=== PATIENT | male | born 2000 | race Caucasian/White ===

== ENCOUNTER 2018-04-03 09:59 | Emergency (ER) | payer OTHER ==
[~2018-04-03] VITALS: Ht 182.9 cm; Wt 106.6 kg
[2018-04-03 10:33] LABS: URINE BILIRUBIN NEGATIVE (Negative); URINE BLOOD NEGATIVE (Negative); URINE CLARITY CLEAR; URINE COLOR DARK YELLOW; URINE GLUCOSE-RANDOM NEGATIVE (Negative); URINE KETONES NEGATIVE (Negative); URINE LEUKOCYTES NEGATIVE (Negative); URINE NITRITE NEGATIVE (Negative); URINE PROTEIN NEGATIVE (Negative); URINE UROBILINOGEN 0.2 E.U./dl (0.2-1.0)
[2018-04-03 10:43] LABS: CALCIUM 8.9 mg/dL (8.5-10.1); CREATININE 0.9 mg/dL (0.6-1.3)
[2018-04-03 10:48] LABS: ALBUMIN 3.7 g/dL (3.4-5.0); TOTAL BILIRUBIN 0.4 mg/dL (<0.1-1.0); TOTAL PROTEIN 7.1 g/dL (6.4-8.2)
[2018-04-03 10:49] LABS: ABSOLUTE EOSINOPHILS 0.2 thou/uL (0.0-0.7); ABSOLUTE LYMPHOCYTES 1.9 thou/uL (0.8-5.3); ABSOLUTE MONOCYTES 0.5 thou/uL (0.0-1.2); ABSOLUTE NEUTROPHILS 3.8 thou/uL (1.6-8.1); BASOPHILS 0.2 %; EOSINOPHILS 2.7 %; HEMATOCRIT 40.2 % (42.0-52.0); HEMOGLOBIN 13.7 gm/dL (14.0-18.0); LYMPHOCYTES 29.9 %; MCH 30.1 pg (26.0-34.0); MCHC 34.1 g/dL (28.0-37.0); MCV 88.4 fL (80.0-100.0); MONOCYTES 7.8 %; MPV 7.5 fl. (7.2-11.1); NUCLEATED RBCS 0 /100WBC; PLATELET COUNT* 300 thou/uL (150-400); POLYS 59.4 %; RBC 4.55 mil/uL (4.50-6.00); RDW-CV 12.9 % (10.5-14.5); WBC 6.4 thou/uL (4.0-11.0)
[2018-04-03] MEDS ORDERED: ONDANSETRON HCL4 M2 PO (12:12)
[2018-04-03 12:20] VITALS: BP 135/63
== END 2018-04-03 12:20 | disposition home or self-care (01) ==
LOC: M.ERS 09:59
PROVIDERS: Nurse Practitioner Family
DX: K52.9 Noninfective gastroenteritis and colitis, unspecified (principal); R74.8 Abnormal levels of other serum enzymes; Z88.1 Allergy status to other antibiotic agents; Z88.8 Allergy status to other drugs, medicaments and biological substances

== ENCOUNTER 2018-08-25 13:49 | Emergency (ER) | payer OTHER ==
[~2018-08-25] VITALS: Ht 182.9 cm; Wt 111.1 kg
[~2018-08-25 13:49] MED LIST: ONDANSETRON HCL4 M2 PO
[2018-08-25 13:56] VITALS: BP 138/89
== END 2018-08-25 14:36 | disposition home or self-care (01) ==
LOC: M.ERS 13:49
DX: R19.7 Diarrhea, unspecified (principal); K58.9 Irritable bowel syndrome, unspecified; F17.210 Nicotine dependence, cigarettes, uncomplicated; Z88.1 Allergy status to other antibiotic agents; Z88.8 Allergy status to other drugs, medicaments and biological substances

== ENCOUNTER 2019-03-02 17:17 | Emergency (ER) | payer OTHER ==
[~2019-03-02] VITALS: Ht 182.9 cm; Wt 117.9 kg
[2019-03-02 17:51] LABS: URINE BILIRUBIN NEGATIVE (Negative); URINE BLOOD NEGATIVE (Negative); URINE CLARITY CLEAR; URINE COLOR YELLOW; URINE GLUCOSE-RANDOM NEGATIVE (Negative); URINE KETONES NEGATIVE (Negative); URINE LEUKOCYTES-REFLEX NEGATIVE (Negative); URINE NITRITE-REFLEX NEGATIVE (Negative); URINE PROTEIN NEGATIVE (Negative)
[2019-03-02 18:09] LABS: ABSOLUTE EOSINOPHILS 0.1 thou/uL (0.0-0.7); ABSOLUTE LYMPHOCYTES 2.4 thou/uL (0.8-5.3); ABSOLUTE MONOCYTES 0.5 thou/uL (0.0-1.2); ABSOLUTE NEUTROPHILS 4.2 thou/uL (1.6-8.1); BASOPHILS 0.2 %; EOSINOPHILS 1.1 %; HEMATOCRIT 42.3 % (42.0-52.0); HEMOGLOBIN 14.8 gm/dL (14.0-18.0); LYMPHOCYTES 32.9 %; MCV 88.3 fL (80.0-100.0); MONOCYTES 7.2 %; MPV 7.3 fl. (7.2-11.1); NUCLEATED RBCS 0 /100WBC; PLATELET COUNT* 286 thou/uL (150-400); POLYS 58.6 %; RBC 4.79 mil/uL (4.50-6.00); WBC 7.1 thou/uL (4.0-11.0)
[2019-03-02 18:16] LABS: CALCIUM 9.5 mg/dL (8.5-10.1); POTASSIUM 3.8 mmol/L (3.5-5.1)
[2019-03-02 18:21] LABS: ALBUMIN 4.2 g/dL (3.4-5.0); TOTAL PROTEIN 7.5 g/dL (6.4-8.2)
[2019-03-02] MEDS ORDERED: CIPRO500 MG PO (20:14)
[2019-03-02] MEDS ORDERED: ONDANSETRON HCL4 M2 PO (20:14)
[2019-03-02] MEDS ORDERED: BENTYL 20 MG TA20 M1 PO (20:14)
[2019-03-02] MEDS ORDERED: FLAGYL500 M1 PO (20:14)
[2019-03-02 20:38] VITALS: BP 142/69
== END 2019-03-02 20:40 | disposition home or self-care (01) ==
LOC: M.ERS 17:17
PROVIDERS: Nurse Practitioner Family
DX: K52.9 Noninfective gastroenteritis and colitis, unspecified (principal); Z88.1 Allergy status to other antibiotic agents

== ENCOUNTER 2019-03-19 18:40 | Emergency (ER) | payer OTHER ==
[~2019-03-19] VITALS: Ht 182.9 cm; Wt 113.4 kg
[~2019-03-19 18:40] MED LIST changes: +BENTYL 20 MG TA20 M1 PO; +CIPRO500 MG PO; +FLAGYL500 M1 PO
[2019-03-19 19:28] LABS: URINE BILIRUBIN NEGATIVE (Negative); URINE BLOOD NEGATIVE (Negative); URINE CLARITY CLEAR; URINE COLOR YELLOW; URINE GLUCOSE-RANDOM NEGATIVE (Negative); URINE KETONES NEGATIVE (Negative); URINE LEUKOCYTES-REFLEX NEGATIVE (Negative); URINE NITRITE-REFLEX NEGATIVE (Negative); URINE PROTEIN NEGATIVE (Negative); URINE SPECIFIC GRAVITY >= 1.030 (1.005-1.030); URINE UROBILINOGEN 0.2 E.U./dl (0.2-1.0)
[2019-03-19 19:29] LABS: AMP/METHAMP Negative (Negative); BARBITURATES Negative (Negative); BENZODIAZEPINES Negative (Negative); COCAINE Negative (Negative); METHADONE Negative (Negative); OPIATES Negative (Negative); PCP Negative (Negative); THC POSITIVE (Negative)
[2019-03-19 19:34] LABS: ABSOLUTE EOSINOPHILS 0.1 thou/uL (0.0-0.7); ABSOLUTE LYMPHOCYTES 2.3 thou/uL (0.8-5.3); ABSOLUTE MONOCYTES 0.4 thou/uL (0.0-1.2); BASOPHILS 0.3 %; EOSINOPHILS 1.6 %; LYMPHOCYTES 33.3 %; MCH 30.3 pg (26.0-34.0); MCHC 34.2 g/dL (28.0-37.0); MCV 88.5 fL (80.0-100.0); MPV 7.7 fl. (7.2-11.1); NUCLEATED RBCS 0 /100WBC; PLATELET COUNT* 262 thou/uL (150-400); POLYS 58.8 %; RBC 4.63 mil/uL (4.50-6.00); RDW-CV 13.1 % (10.5-14.5); WBC 6.8 thou/uL (4.0-11.0)
[2019-03-19 19:40] LABS: CALCIUM 8.9 mg/dL (8.5-10.1); POTASSIUM 3.6 mmol/L (3.5-5.1)
[2019-03-19 19:45] LABS: ALBUMIN 3.7 g/dL (3.4-5.0); TOTAL BILIRUBIN 0.2 mg/dL (<0.1-1.0)
[2019-03-19 21:05] VITALS: BP 116/62
== END 2019-03-19 21:05 | disposition home or self-care (01) ==
LOC: M.ERS 18:40
PROVIDERS: Physician Assistant
DX: K62.5 Hemorrhage of anus and rectum (principal); Z88.1 Allergy status to other antibiotic agents; Z88.8 Allergy status to other drugs, medicaments and biological substances; Z79.899 Other long term (current) drug therapy

== ENCOUNTER 2019-05-20 07:48 | Emergency (ER) | payer OTHER ==
[~2019-05-20] VITALS: Ht 182.9 cm; Wt 108.9 kg
[2019-05-20] MEDS ORDERED: OMEPRAZOLE40 MG PO (08:08)
[2019-05-20 08:36] LABS: ABSOLUTE EOSINOPHILS 0.1 thou/uL (0.0-0.7); ABSOLUTE LYMPHOCYTES 1.4 thou/uL (0.8-5.3); ABSOLUTE MONOCYTES 0.4 thou/uL (0.0-1.2); ABSOLUTE NEUTROPHILS 4.2 thou/uL (1.6-8.1); BASOPHILS 0.2 %; EOSINOPHILS 1.5 %; HEMATOCRIT 41.5 % (42.0-52.0); HEMOGLOBIN 14.4 gm/dL (14.0-18.0); MCH 30.8 pg (26.0-34.0); MCHC 34.7 g/dL (28.0-37.0); MCV 88.8 fL (80.0-100.0); MONOCYTES 7.2 %; MPV 7.4 fl. (7.2-11.1); NUCLEATED RBCS 0 /100WBC; PLATELET COUNT* 301 thou/uL (150-400); POLYS 68.1 %; RBC 4.67 mil/uL (4.50-6.00); WBC 6.2 thou/uL (4.0-11.0)
[2019-05-20 08:50] LABS: CALCIUM 8.7 mg/dL (8.5-10.1); CREATININE 0.8 mg/dL (0.6-1.3); POTASSIUM 3.9 mmol/L (3.5-5.1)
[2019-05-20 08:51] LABS: INFLUENZA A ANTIGEN Negative (Negative); INFLUENZA B ANTIGEN Negative (Negative)
[2019-05-20 08:55] LABS: TOTAL BILIRUBIN 0.6 mg/dL (<0.1-1.0); TOTAL PROTEIN 7.5 g/dL (6.4-8.2)
[2019-05-20 09:22] LABS: AMP/METHAMP Negative (Negative); BARBITURATES Negative (Negative); BENZODIAZEPINES Negative (Negative); COCAINE Negative (Negative); METHADONE Negative (Negative); OPIATES Negative (Negative); PCP Negative (Negative); THC POSITIVE (Negative)
[2019-05-20 09:48] VITALS: BP 115/59
[2019-05-20 10:28] LABS: URINE BILIRUBIN NEGATIVE (Negative); URINE BLOOD NEGATIVE (Negative); URINE CLARITY CLEAR; URINE COLOR YELLOW; URINE GLUCOSE-RANDOM NEGATIVE (Negative); URINE KETONES NEGATIVE (Negative); URINE LEUKOCYTES-REFLEX NEGATIVE (Negative); URINE NITRITE-REFLEX NEGATIVE (Negative); URINE PROTEIN NEGATIVE (Negative); URINE UROBILINOGEN 0.2 E.U./dl (0.2-1.0)
== END 2019-05-20 09:49 | disposition home or self-care (01) ==
LOC: M.ERS 07:48
PROVIDERS: Personal Emergency Response Attendant
DX: K92.0 Hematemesis (principal); Z88.1 Allergy status to other antibiotic agents; Z88.8 Allergy status to other drugs, medicaments and biological substances

== ENCOUNTER 2019-05-27 15:07 | Emergency (ER) | payer OTHER ==
[~2019-05-27] VITALS: Ht 180.3 cm; Wt 113.4 kg
[~2019-05-27 15:07] MED LIST changes: +OMEPRAZOLE40 MG PO
[2019-05-27 15:38] LABS: INFLUENZA A ANTIGEN Negative (Negative); INFLUENZA B ANTIGEN Negative (Negative)
[2019-05-27 16:10] VITALS: BP 138/78
== END 2019-05-27 16:13 | disposition home or self-care (01) ==
LOC: M.ERS 15:07
PROVIDERS: Emergency Medicine Emergency Medical Services
DX: J06.9 Acute upper respiratory infection, unspecified (principal); F17.210 Nicotine dependence, cigarettes, uncomplicated; Z88.1 Allergy status to other antibiotic agents; Z88.8 Allergy status to other drugs, medicaments and biological substances

== ENCOUNTER 2019-06-18 19:18 | Emergency (ER) | payer OTHER ==
[~2019-06-18] VITALS: Ht 182.9 cm; Wt 104.3 kg
[2019-06-18] MEDS ORDERED: BENTYL 20 MG TA20 M1 PO (19:30)
[2019-06-18 20:27] LABS: INFLUENZA A ANTIGEN Negative (Negative); INFLUENZA B ANTIGEN Negative (Negative)
[2019-06-18] MEDS ORDERED: PREDNISONE 20 M20 MG PO (21:00)
[2019-06-18] MEDS ORDERED: ONDANSETRON HCL4 M2 PO (21:00)
[2019-06-18 21:07] VITALS: BP 118/70
== END 2019-06-18 21:07 | disposition home or self-care (01) ==
LOC: M.ERS 19:18
PROVIDERS: Nurse Practitioner Family
DX: B34.9 Viral infection, unspecified (principal); K58.9 Irritable bowel syndrome, unspecified; F17.210 Nicotine dependence, cigarettes, uncomplicated; Z88.1 Allergy status to other antibiotic agents; Z88.8 Allergy status to other drugs, medicaments and biological substances

== ENCOUNTER 2021-02-12 16:19 | Emergency (ER) | payer OTHER ==
[~2021-02-12] VITALS: Ht 182.9 cm; Wt 99.8 kg
[~2021-02-12 16:19] MED LIST changes: +PREDNISONE 20 M20 MG PO
[2021-02-12 17:57] VITALS: BP 129/69
== END 2021-02-12 17:58 | disposition home or self-care (01) ==
LOC: M.ERS 16:19
DX: R53.83 Other fatigue (principal); Z20.822 Contact with and (suspected) exposure to COVID-19; F17.210 Nicotine dependence, cigarettes, uncomplicated; Z88.0 Allergy status to penicillin; Z88.1 Allergy status to other antibiotic agents